=== PATIENT | male | born 1975 ===

== ENCOUNTER 2018-03-11 10:39 | Outpatient (CLI) | payer OTHER | END 2018-03-11 10:40 | disposition home or self-care (01) | LOC: C.LAB 10:39 | DX: N18.3 Chronic kidney disease, stage 3 (moderate) (principal); R80.9 Proteinuria, unspecified ==

== ENCOUNTER 2018-03-17 08:13 | Outpatient (CLI) | payer OTHER | END 2018-03-17 08:14 | disposition home or self-care (01) | LOC: C.USIC 08:14 | DX: M10.9 Gout, unspecified (principal); N18.3 Chronic kidney disease, stage 3 (moderate); R80.9 Proteinuria, unspecified ==